=== PATIENT | female | born 1955 | race Two or more races ===

== ENCOUNTER → 2024-06-13 | Outpatient (CLI) | payer OTHER ==
[2024-06-13 07:31] LABS: Urine Bacteria None Seen /hpf (None Seen)
[2024-06-13 07:42] LABS: Basophils # (auto) 0 10 ^3/uL (0-0.2); Basophils % (auto) 0.7 % (0.0-2.0); Eosinophils # (auto) 0.1 10 ^3/uL (0-0.8); Eosinophils % (auto) 1.6 % (0.0-7.0); Hematocrit 43.4 % (36.0-46.0); Hemoglobin 14.8 g/dL (12.2-16.2); Lymphocytes # (auto) 1.2 10 ^3/uL (0.4-5.4); Lymphocytes % (auto) 25.3 % (10.0-50.0); Mean Corpuscular Hemoglobin 31.9 pg (28.0-32.0); Mean Corpuscular Volume 93.8 fL (80.0-100.0); Monocytes # (auto) 0.3 10 ^3/uL (0-1.3); Neutrophils # (auto) 3.2 10 ^3/uL (1.6-8.6); Neutrophils % (auto) 65.4 % (37.0-80.0); Platelet Count (auto) 277 10^3/uL (140-450); Red Blood Cells 4.62 10^6/uL (4.0-5.20); Red Cell Distribution Width 12.7 % (11.8-14.3); White Blood Cell 4.9 10^3/uL (4.4-10.8)
[2024-06-13 07:54] LABS: Urine Blood Negative /uL (Negative); Urine Clarity Clear (Clear); Urine Color Colorless (Yellow); Urine Protein, UAD Negative (Negative); Urine Specific Gravity 1.004 (1.001-1.035); Urine Squamous Epithelial Cell FEW /hpf (<5); Urine Urobilinogen Normal (Negative); Urine WBC 1 /HPF (0-5)
[2024-06-13 08:25] LABS: Anion Gap 10 (5-15); BUN/Creatinine Ratio 19.4 (10.0-20.0); Blood Urea Nitrogen 13 mg/dL (9-23); Calcium 9.9 mg/dL (8.7-10.4); Carbon Dioxide 26 mmol/L (20-31); Chloride 106 mmol/L (98-107); Glucose 104 mg/dL (74-106); Potassium 3.9 mmol/L (3.5-5.1); Sodium 142 mmol/L (136-145); Total Protein 6.8 g/dL (5.7-8.2); Triglycerides 53 mg/dL (< 150)
[2024-06-13 08:26] LABS: Albumin 4.7 g/dL (3.2-4.8); Aspartate Aminotransferase 26 U/L (13-40); Bilirubin, Total 0.7 mg/dL (0.2-1.0)
[2024-06-13 08:41] LABS: Alanine Aminotransferase 41 U/L (7-40); Alkaline Phosphatase 210 U/L (46-116); Cholesterol 204 mg/dL (< 200); HDL Cholesterol 91 mg/dL (40-59); LDL Cholesterol 104 mg/dL (< 100)
[2024-06-13 08:42] LABS: % Iron Saturation 48.4 % (15-50)
[2024-06-13 09:06] LABS: Free T3 3.68 pg/mL (2.3-4.2)
[2024-06-13 09:07] LABS: T3 Total 1.35 ng/mL (0.60-1.81)
[2024-06-13 09:08] LABS: Folate (Folic Acid) 10.94 ng/mL (>5.38); Free T4 (Free Thyroxine) 1.44 ng/dL (0.89-1.76)
[2024-06-14 07:07] LABS: Thyroid Peroxidase (TPO) Ab 13 IU/mL (0-34)
[2024-06-14 08:07] LABS: Anti-Nuclear Antibody Direct Negative (Negative); Anti-dsDNA Antibody <1 IU/mL (0-9); Antiscleroderma-70 Antibody <0.2 AI (0.0-0.9); Complement C3 147 mg/dL (82-167); RNP Antibody 0.8 AI (0.0-0.9); Rheumatoid Arthritis Factor <10.0 IU/mL (<14.0); Sjogren's Anti-SS-A Antibody <0.2 AI (0.0-0.9); Sjogren's Anti-SS-B Antibody <0.2 AI (0.0-0.9); Smith Antibody <0.2 AI (0.0-0.9)
== END | disposition home or self-care (01) ==
LOC: LAB 07:08
PROVIDERS: ATTEND Family Medicine
DX: E78.2 Mixed hyperlipidemia (principal); E86.0 Dehydration; Z00.00 Encounter for general adult medical examination without abnormal findings; Z68.35 Body mass index [BMI] 35.0-35.9, adult
CPT/HCPCS: 36415; 80053; 80061; 81001; 82306; 82607; 82746; 83036; 83540; 83550; 84439; 84443; 84480; 84481; 85025; 86160; 86225; 86235; 86376; 86431